=== PATIENT | female | born 1985 | race Caucasian/White ===

== ENCOUNTER 2019-06-08 16:57 | Emergency (ER) | payer BC ==
[~2019-06-08] VITALS: Ht 162.6 cm; Wt 56.0 kg
[2019-06-08 17:02] VITALS: BP 122/75
[2019-06-08] MEDS: HYDROcodone/APAP 5/325MG 1 TAB TABLET PO ONE (17:17)
--- NOTE | 2019-06-08 17:21 | PHYS DOC ---
Past History Past Medical History: No Pertinent History Past Surgical History: No Surgical History Alcohol Use: None General Adult EDM: Chief Complaint: WRIST PAIN HPI: HPI: 33-year-old female presents with left wrist pain. The patient was trimming trees up on a 6 foot ladder when she fell off. She fell onto her outstretched left hand. She has deformity and is concerned for fracture. It was hurting significantly and her helped reduce it a little bit. Patient states that it hurts less now since then. The pain is a 5 out of 10. She is neurovascularly intact distally. She has a couple other bumps and scrapes, but denies any other significant injuries. She denies being attacked or hurt by another person or animal. Review of Systems: Review of Systems: Constitutional: Denies fever or chills Eyes: Denies change in visual acuity HENT: Denies nasal congestion or sore throat Respiratory: Denies cough or shortness of breath Cardiovascular: Denies chest pain or edema GI: Denies abdominal pain, nausea, vomiting, bloody stools or diarrhea : Denies dysuria Musculoskeletal: Left wrist pain Integument: Denies rash Neurologic: Denies headache, focal weakness or sensory changes Endocrine: Denies polyuria or polydipsia Lymphatic: Denies swollen glands Psychiatric: Denies depression or anxiety Heart Score: Risk Factors: Risk Factors: DM, Current or recent (<one month) smoker, HTN, HLP, family history of CAD, obesity. Risk Scores: Score 0 - 3: 2.5% MACE over next 6 weeks - Discharge Home Score 4 - 6: 20.3% MACE over next 6 weeks - Admit for Clinical Observation Score 7 - 10: 72.7% MACE over next 6 weeks - Early Invasive Strategies Current Medications: Current Meds: Current Medications Medications (Trade) Dose Ordered Sig/Sarah Start Time Stop Time Status Last Admin Dose Admin Acetaminophen/ Hydrocodone Bitart (Lortab 5/325) 1 tab 1X ONCE 06/08/19 17:15 06/08/19 17:16 DC 06/08/19 17:17 1 TAB Allergies: Allergies: Allergies Coded Allergies Type Severity Reaction Last Updated Verified No Known Drug Allergies 06/08/19 No Physical Exam: PE: Constitutional: Well developed, well nourished, no acute distress, non-toxic appearance. [] HENT: Normocephalic, atraumatic, bilateral external ears normal, oropharynx moist, no oral exudates, nose normal. [] Eyes: PERRLA, EOMI, conjunctiva normal, no discharge. [] Neck: Normal range of motion, no tenderness, supple, no stridor. [] Cardiovascular:Heart rate regular rhythm, no murmur [] Lungs & Thorax: Bilateral breath sounds clear to auscultation [] Abdomen: Bowel sounds normal, soft, no tenderness, no masses, no pulsatile masses. [] Skin: Warm, dry, no erythema, no rash. [] Back: No tenderness, no CVA tenderness. [] Extremities: Left wrist with swelling, ecchymosis, and obvious deformity. Neuro vascularly intact distal to injury. [] Neurologic: Alert and oriented X 3, normal motor function, normal sensory function, no focal deficits noted. [] Psychologic: Affect normal, judgement normal, mood normal. [] Current Patient Data: Vital Signs: Vital Signs Date Time Temp Pulse Resp B/P (MAP) Pulse Ox O2 Delivery O2 Flow Rate FiO2 06/08/19 17:17 18 06/08/19 17:02 98.2 65 122/75 (91) 98 Room Air EKG: EKG: [] Radiology/Procedures: Radiology/Procedures: [] Impressions: WRIST 3V LEFT 06/08/2019 5:05 PM INDICATION: Fall COMPARISON: None available. TECHNIQUE: 3 views the left wrist are provided. FINDINGS/ IMPRESSION: Comminuted fracture of the distal radial metadiaphysis with intra-articular extension to the radiocarpal joint. There is a mildly displaced, possibly remote fracture involving the ulnar styloid process. Scaphoid appears intact. There is regional soft tissue swelling. There is apex volar angulation of fracture fragments. Electronically signed by: Katharina Lo MD (06/08/2019 5:42 PM) [facility] DICTATED AND SIGNED BY: KATHARINA LO MD DATE: 06/08/191741 CC: PAOLA CHANDRA DO; CHRISTA KOWALSKI MD ~ Course & Med Decision Making: Course & Med Decision Making Pertinent Labs and Imaging studies reviewed. (See chart for details) The patient has a comminuted fracture of the distal left radius and possibly the ulnar styloid. See official report for details. We have placed the patient in a splint and a sling. She will follow-up with orthopedics later this week. I will discharge her with Gilman 5/325 for pain. She is stable for discharge at this time. [] Taqueria Disclaimer: Taqueria Disclaimer: This electronic medical record was generated, in whole or in part, using a voice recognition dictation system. Departure Departure: Impression: Primary Impression: Radial fracture Qualified Codes: S52.572A - Other intraarticular fracture of lower end of left radius, initial encounter for closed fracture Additional Impression: Fall from ladder Qualified Codes: W11.XXXA - Fall on and from ladder, initial encounter Disposition: HOME, SELF-CARE Condition: STABLE Referrals: CHRISTA KOWALSKI MD (PCP) Patient Instructions: Radial Fracture Additional Instructions: You can follow-up with the [facility]. Please call them at [phone] to make an appointment. I would call them first thing tomorrow morning. Scripts Hydrocodone Bit/Acetaminophen (NORCO 5-325 TABLET) 1 Each Tablet 1 TAB PO PRN Q6HRS PRN for PAIN, #20 TAB 0 Refills Prov: PAOLA CHANDRA DO 06/08/19 PAOLA CHANDRA DO Jun 08, 2019 17:20
--- NOTE | 2019-06-08 17:45 | RAD ---
WRIST 3V LEFT 06/08/2019 5:05 PM INDICATION: Fall COMPARISON: None available. TECHNIQUE: 3 views the left wrist are provided. FINDINGS/ IMPRESSION: Comminuted fracture of the distal radial metadiaphysis with intra-articular extension to the radiocarpal joint. There is a mildly displaced, possibly remote fracture involving the ulnar styloid process. Scaphoid appears intact. There is regional soft tissue swelling. There is apex volar angulation of fracture fragments. Electronically signed by: Miriam Lo MD (06/08/2019 5:42 PM) [facility]
[2019-06-08] MEDS ORDERED: HYDR-3165 PO (17:52)
== END 2019-06-08 17:58 | disposition home or self-care (01) ==
LOC: ER 16:57
DX: S52.572A Other intraarticular fracture of lower end of left radius, initial encounter for closed fracture (principal); W11.XXXA Fall on and from ladder, initial encounter; Y93.H2 Activity, gardening and landscaping; Y92.89 Other specified places as the place of occurrence of the external cause; Y99.8 Other external cause status
CPT/HCPCS: 29125; 73110; 99283

== ENCOUNTER → 2019-07-05 | Outpatient (CLI) | payer BC ==
[2019-06-08 17:02] VITALS: BP 122/75
[~2019-07-05] MED LIST: HYDR-3165 PO
--- NOTE | 2019-07-05 09:31 | RAD ---
EXAM: Left wrist, 3 views. HISTORY: Fracture follow-up. COMPARISON: 06/08/2019 FINDINGS: 3 views of the left wrist are obtained. There is internal fixation of an intra-articular fracture of the distal radial metaphysis with plate and multiple screws. There has been no significant interval healing along the main fracture line. There is a displaced ulnar styloid fracture. This is also unchanged. IMPRESSION: 1. No significant interval healing of an intra-articular fracture of the distal radial metaphysis status post internal fixation. 2. No significant change in a displaced ulnar styloid fracture. Electronically signed by: Cassie Alcala MD (07/05/2019 9:28 AM) [id number]
== END | disposition home or self-care (01) ==
LOC: RAD 09:15
PROVIDERS: ATTEND Physician Assistant
DX: S52.612A Displaced fracture of left ulna styloid process, initial encounter for closed fracture (principal); Z98.890 Other specified postprocedural states; X58.XXXA Exposure to other specified factors, initial encounter; Y93.89 Activity, other specified; Y92.89 Other specified places as the place of occurrence of the external cause; Y99.8 Other external cause status
CPT/HCPCS: 73110

== ENCOUNTER → 2019-08-09 | Outpatient (CLI) | payer BC ==
--- NOTE | 2019-08-09 16:09 | RAD ---
PROCEDURE: WRIST 3V LEFT STUDY DATE: 08/09/2019 CLINICAL INDICATION / HISTORY: Reason: S/P SURGERICAL REPAIR OF WRIST / Spl. Instructions: / History: . TECHNIQUE: Right wrist 3 views COMPARISON: Right wrist x-rays 06/08/2019 and 07/05/2019. FINDINGS: Volar plate and screw construct fixation of the distal right radial metaphyseal fracture is redemonstrated with interval partial healing of the fracture line. No hardware loosening, migration or failure is evident. Ulnar styloid process ununited fracture is also noted. Alignment is unremarkable.. IMPRESSION: Partial interval healing of a distal radial metaphyseal fracture status post volar plate and screw construct fixation. Electronically signed by: Kristofer Javier MD (08/09/2019 4:06 PM) [id number]
== END ==
LOC: DXRAD 12:51
PROVIDERS: ATTEND Physician Assistant
DX: S59.292D Other physeal fracture of lower end of radius, left arm, subsequent encounter for fracture with routine healing (principal); X58.XXXD Exposure to other specified factors, subsequent encounter; Z98.890 Other specified postprocedural states
CPT/HCPCS: 73110